=== PATIENT | male | born 1930 | race Caucasian/White ===

== ENCOUNTER → 2017-07-03 | Outpatient (CLI) | payer MEDICARE, BC ==
[~2017-07-03] MED LIST: ADULT LOW DOSE81 MG PO; AVODART0.5 MG PO; CAPTOPRIL50 MG PO; CARVEDILOL 25MG25 MG PO; CEFDINIR300 MG PO; CETIRIZINE HCL10 MG PO; DIGOXIN0.125 MG PO; DULERA1 AR1 IH; FLOVENT DI50 MCG/ACT IH; FOLBIC 2 MG-2.51 TAB PO; HYDROCHLOROTHIA25 M1 PO; ISOSORBIDE MONO60 M1 PO; MONODOX100 MG PO; MUCUS RELIEF C400 MG PO; POTASSIUM CHLO10 ME3 PO; PREMIUM DAILY M1 TAB PO; PROTONIX40 MG PO; TAMSULOSIN HYD0.4 MG PO; ZITHROMAX Z PA250 MG PO
[2017-07-03 13:06] LABS: HEMOGLOBIN 14.6 g/dL (14.1-18.0); LYMPH % 45.8 % (10-50)
[2017-07-03 13:07] LABS: LYMPH # 4.8 K/mm3 (0.7-4.5)
[2017-07-03 13:51] LABS: BUN 21 mg/dL (7-18)
[2017-07-03 13:52] LABS: GFR (ESTIMATED) 71 ML/MIN (>60)
== END ==
LOC: LAB 10:06
PROVIDERS: Internal Medicine Adolescent Medicine
DX: E78.5 Hyperlipidemia, unspecified (principal); I25.10 Atherosclerotic heart disease of native coronary artery without angina pectoris